=== PATIENT | male | born 1945 | race Caucasian/White ===

== ENCOUNTER 2023-05-29 17:03 | Observation (INO) | payer OTHER ==
[2023-05-29 17:21] LABS: BASOPHILS # (AUTO) 0.1 10^3/uL (0.0-0.1); BASOPHILS % (AUTO) 0.6 %; EOSINOPHILS # (AUTO) 0.2 10^3/uL (0.0-0.7); EOSINOPHILS % (AUTO) 1.7 %; HCT - HEMATOCRIT 38.2 % (42.0-52.0); HGB - HEMOGLOBIN 12.8 g/dL (14.0-18.0); LYMPHOCYTES # (AUTO) 2.8 10^3/uL (1.5-3.5); LYMPHOCYTES % (AUTO) 31.8 %; MEAN CORPUSCULAR HGB CONC 33.5 g/dL (32.0-36.0); MEAN CORPUSCULAR VOLUME 92.5 fL (80.0-94.0); MEAN PLATELET VOLUME 9.7 fL (7.4-11.4); MONOCYTES % (AUTO) 11.5 %; NEUTROPHILS # (AUTO) 4.7 10^3/uL (1.5-6.6); NEUTROPHILS % (AUTO) 53.6 %; PLT - PLATELET COUNT 267 10^3/uL (130-450); RED BLOOD COUNT 4.13 10^6/uL (4.70-6.10); RED CELL DISTRIBUTION WIDTH 12.7 % (12.0-15.0); WHITE BLOOD COUNT 8.8 x10^3/uL (4.8-10.8)
--- NOTE | 2023-05-29 17:23 | ED Physician Documentation ---
PD HPI FOCAL NEURO - Stated complaint Stated Complaint: EXPRESSIVE APHASIA,TALLEY - Chief complaint Chief Complaint: Neuro - History obtained from History obtained from: Patient, Family - History of Present Illness Timing - onset: How many minutes ago (45) Timing - duration: Minutes (45) Timing - details: Abrupt onset Severity of deficit: Mild Associated symptoms: No: Nausea / vomiting, Seizure, Syncope, Fall, Head injury, Chest pain, Neck pain, Back pain Contributing factors: negative: Anticoagulated Baseline status: positive: A&OX3, ambulatory, indep - Additional information Additional information: Patient is a 78-year-old male who presents to the emergency department with difficulty with word finding that started at about 1630 today, approximately 45 minutes prior to arrival. They had just finished dinner. He states he had a slight left-sided headache at that time but this is since resolved. No fevers. No chills. No trauma. No falls. Does not take any blood thinners. No numbness or tingling. No weakness. No vision changes. No difficulty with ambulation. Has not had similar symptoms previously. He is a diabetic. Review of Systems Constitutional: denies: Fever, Chills Nose: denies: Rhinorrhea / runny nose, Congestion Respiratory: denies: Dyspnea, Cough GI: denies: Abdominal Pain, Nausea, Vomiting, Diarrhea Skin: denies: Rash Musculoskeletal: denies: Neck pain, Back pain Neurologic: denies: Focal weakness, Numbness, Seizure, Confused, Head injury, LOC PD PAST MEDICAL HISTORY - Past Medical History Past Medical History: Yes Cardiovascular: Hypertension Endocrine/Autoimmune: Type 2 diabetes - Present Medications Home Medications: Ambulatory Orders Medication Instructions Recorded Confirmed Aspirin EC [Ecotrin] 81 mg PO DAILY 05/29/23 05/29/23 Losartan Potassium 100 mg PO DAILY 05/29/23 05/29/23 Metformin HCl 1,000 mg PO DAILY 05/29/23 05/29/23 Omeprazole Magnesium 20 mg PO DAILY 05/29/23 05/29/23 Semaglutide [Ozempic] 1 mg SUBQ PRN PRN 05/29/23 05/29/23 Simvastatin [Zocor] 40 mg PO DAILY 05/29/23 05/29/23 Tamsulosin HCl [Flomax] 0.4 mg PO DAILY 05/29/23 05/29/23 - Allergies Allergies/Adverse Reactions: Allergies Allergy/AdvReac Type Severity Reaction Status Date / Time No Known Drug Allergies Allergy Verified 05/29/23 17:18 - Living Situation Living Situation: reports: With family Living Arrangement: reports: At home - Social History Does the pt smoke?: No Smoking Status: Never smoker Does the pt drink ETOH?: Yes - Family History Family history: reports: Non contributory PD ED PE NORMAL - Vitals Vital signs reviewed: Yes - General General: Alert and oriented X 3, No acute distress - HEENT HEENT: PERRL, Moist mucous membranes - Neck Neck: Supple, no meningeal sign - Cardiac Cardiac: RRR, Strong equal pulses - Respiratory Respiratory: No respiratory distress, Clear bilaterally - Abdomen Abdomen: Soft, Non tender, Non distended - Derm Derm: Warm and dry - Extremities Extremities: No edema, No calf tenderness / cord - Neuro Neuro: Alert and oriented X 3, 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 NIHSS - Time Time: 17:15 - Level of Consciousness Level of consciousness: (0) Alert, Keenly responsive LOC Questions: (0) Answers both Q's correct LOC Commands: (0) Performs both correctly - Gaze Best Gaze: (0) Normal - Visual Visual: (0) No loss - Facial Palsy Facial Palsy: (0) Normal, symmetrical movement - Motor Arms (both separate) Motor Arm (right): (0) No drift Motor Arm (left): (0) No drift - Motor Legs (both separate) Motor Leg (right): (0) No drift Motor Leg (left): (0) No drift - Limb Ataxia Limb Ataxia: (0) Absent - Sensory Sensory: (0) Normal - Best Language Best Language: (1) [id number] - Dysarthria Dysarthria: (0) Normal - Extinction and Inattention (formally neg Extinction and inattention: (0) No abnormality - Total Score/Results Total Score/Result: 1 Results - Vitals Vitals: Vital Signs - 24 hr 05/29/23 05/29/23 05/29/23 17:13 18:03 18:30 Temperature 36.8 C Heart Rate 77 77 77 Respiratory 20 18 18 Rate Blood Pressure 150/86 H 151/67 H 138/100 H O2 Saturation 98 100 100 If not protocol : Oxygen Flow, liters/minute 05/29/23 05/29/23 19:41 21:01 Temperature 37 C 36.5 C Heart Rate 85 96 Respiratory 17 17 Rate Blood Pressure 176/74 H 135/76 H O2 Saturation 99 100 If not protocol 2 : Oxygen Flow, liters/minute Oxygen O2 Source Room air - EKG (time done) 1717 EKG releavant findings:: EKG personally interpreted by author of this note. Relevant findings are: Rate: Rate (enter#) (69) Rhythm: NSR [place]: Anterior hemiblock (Left anterior fascicular block) Intervals: RBBB - Labs Labs: Laboratory Tests 05/29/23 05/29/23 05/29/23 17:17 17:17 17:17 WBC 8.8 RBC 4.13 L Hgb 12.8 L Hct 38.2 L MCV 92.5 MCH 31.0 MCHC 33.5 RDW 12.7 Plt Count 267 MPV 9.7 Neut # (Auto) 4.7 Lymph # (Auto) 2.8 Crane # (Auto) 1.0 Eos # (Auto) 0.2 Baso # (Auto) 0.1 Absolute Nucleated RBC 0.00 Nucleated RBC % 0.0 PT 11.5 INR 1.1 APTT 27.7 Sodium 130 L Potassium 4.5 Chloride 96 L Carbon Dioxide 26 Anion Gap 8.0 BUN 16 Creatinine 1.1 Estimated GFR (MDRD) 65 L Glucose 146 H POC Whole Bld Glucose Calcium 10.0 Magnesium Total Bilirubin 0.5 AST 30 ALT 39 Alkaline Phosphatase 166 H Total Protein 7.8 Albumin 4.5 Globulin 3.3 Albumin/Globulin Ratio 1.4 Lipase 216 H TSH Urine Color Urine Clarity Urine pH Ur Specific [place] Urine Protein Urine Glucose (UA) Urine Ketones Urine Occult Blood Urine Nitrite Urine Bilirubin Urine Urobilinogen Ur Leukocyte Esterase Urine RBC Urine WBC Ur Squamous Epith Cells Urine Bacteria Ur Microscopic Review Urine Culture Comments Salicylates Urine Opiates Screen Ur Oxycodone Screen Urine Methadone Screen Ur Propoxyphene Screen Acetaminophen Ur Barbiturates Screen Ur Tricyclics Screen Ur Phencyclidine Scrn Ur Amphetamine Screen U Methamphetamines Scrn U Benzodiazepines Scrn Urine Cocaine Screen U Cannabinoids Screen Ethyl Alcohol 05/29/23 05/29/23 05/29/23 17:17 17:17 17:24 WBC RBC Hgb Hct MCV MCH MCHC RDW Plt Count MPV Neut # (Auto) Lymph # (Auto) [place]ane # (Auto) Eos # (Auto) Baso # (Auto) Absolute Nucleated RBC Nucleated RBC % PT INR APTT Sodium Potassium Chloride Carbon Dioxide Anion Gap BUN Creatinine Estimated GFR (MDRD) Glucose POC Whole Bld Glucose 148 H Calcium Magnesium 1.7 Total Bilirubin AST ALT Alkaline Phosphatase Total Protein Albumin Globulin Albumin/Globulin Ratio Lipase TSH 2.41 Urine Color Urine Clarity Urine pH Ur Specific [place] Urine Protein Urine Glucose (UA) Urine Ketones Urine Occult Blood Urine Nitrite Urine Bilirubin Urine Urobilinogen Ur Leukocyte Esterase Urine RBC Urine WBC Ur Squamous Epith Cells Urine Bacteria Ur Microscopic Review Urine Culture Comments Salicylates < 1.5 Urine Opiates Screen Ur Oxycodone Screen Urine Methadone Screen Ur Propoxyphene Screen Acetaminophen 0.1 Ur Barbiturates Screen Ur Tricyclics Screen Ur Phencyclidine Scrn Ur Amphetamine Screen U Methamphetamines Scrn U Benzodiazepines Scrn Urine Cocaine Screen U Cannabinoids Screen Ethyl Alcohol 12.7 05/29/23 19:55 WBC RBC Hgb Hct MCV MCH MCHC RDW Plt Count MPV Neut # (Auto) Lymph # (Auto) [place] # (Auto) Eos # (Auto) Baso # (Auto) Absolute Nucleated RBC Nucleated RBC % PT INR APTT Sodium Potassium Chloride Carbon Dioxide Anion Gap BUN Creatinine Estimated GFR (MDRD) Glucose POC Whole Bld Glucose Calcium Magnesium Total Bilirubin AST ALT Alkaline Phosphatase Total Protein Albumin Globulin Albumin/Globulin Ratio Lipase TSH Urine Color YELLOW Urine Clarity CLEAR Urine pH 7.0 Ur Specific [place] 1.010 Urine Protein 30 H Urine Glucose (UA) NEGATIVE Urine Ketones TRACE Urine Occult Blood NEGATIVE Urine Nitrite NEGATIVE Urine Bilirubin NEGATIVE Urine Urobilinogen 0.2 (NORMAL) Ur Leukocyte Esterase NEGATIVE Urine RBC 0-5 Urine WBC 0-3 Ur Squamous Epith Cells RARE Squamous Urine Bacteria None Seen Ur Microscopic Review INDICATED Urine Culture Comments NOT INDICATED Salicylates Urine Opiates Screen NEGATIVE Ur Oxycodone Screen NEGATIVE Urine Methadone Screen NEGATIVE Ur Propoxyphene Screen NEGATIVE Acetaminophen Ur Barbiturates Screen NEGATIVE Ur Tricyclics Screen NEGATIVE Ur Phencyclidine Scrn NEGATIVE Ur Amphetamine Screen NEGATIVE U Methamphetamines Scrn NEGATIVE U Benzodiazepines Scrn NEGATIVE Urine Cocaine Screen NEGATIVE U Cannabinoids Screen NEGATIVE Ethyl Alcohol - Rads (name of study) CT head Relevant Findings:: Final report received, See rad report CT angiogram head and neck Relevant Findings:: Final report received, See rad report Brain MRI Relevant Findings:: Final report received, See rad report PD Medical Decision Making - ED course Complexity details: reviewed results, re-evaluated patient, considered differential (No evidence of sepsis, encephalitis, meningitis. Possible complex migraine but the symptoms did not resolve with resolution of the headache. No evidence of stroke or TIA.), d/w patient, d/w salon sales consultant ED course: Patient had fairly mild expressive aphasia when he arrived in the emergency department. His symptoms are waxing and waning in the emergency department sometimes he will be able to speak several words, other times it appears that he recognizes objects but cannot name them. I did discuss the case with teleporsha sarkar, because of the mild waxing and waning symptoms, we will hold off on tPA at this time. CT angiogram head and neck do not show any significant abnormalities. CT head does not show any acute abnormalities. Brain MRI does not show any acute abnormalities. Patient became more restless and altered in the emergency department. No fevers. No cough. No congestion. No recent illnesses normal white count. Normal tox screen. His alcohol level is not significantly elevated. Unclear etiology of his altered mental status. Discussed the case with the nighttime hospitalist and we will admit the patient for further care and observation. This document was made in part using voice recognition software. While efforts are made to proofread this document, sound alike and grammatical errors may oc cur. Patient did have a headache originally, this resolved in the emergency department but his other symptoms persisted. Departure - Departure Disposition: ED Place in Observation Clinical Impression: Expressive aphasia Altered mental status Qualifiers: Altered mental status type: unspecified Qualified Code(s): R41.82 - Altered mental status, unspecified Condition: Stable Forms: PCP List
[2023-05-29 17:34] LABS: PARTIAL THROMBOPLASTIN TIME 27.7 secs (24.9-33.3)
[2023-05-29 17:37] LABS: ALBUMIN 4.5 g/dL (3.2-5.5)
[2023-05-29 17:38] LABS: INR 1.1 (0.8-1.2); PT - PROTHROMBIN TIME 11.5 secs (9.9-12.6)
[2023-05-29 17:44] LABS: POTASSIUM 4.5 mmol/L (3.5-4.5)
[2023-05-29 17:45] LABS: ALBUMIN/GLOBULIN RATIO 1.4 (1.0-2.2); BILIRUBIN,TOTAL 0.5 mg/dL (0.2-1.0); CREATININE 1.1 mg/dL (0.6-1.3); TOTAL PROTEIN 7.8 g/dL (6.4-8.9)
[2023-05-29] MEDS ORDERED: iohexoL-300 100 ML VIAL IVP ONE (18:03)
--- NOTE | 2023-05-29 18:07 | CT Report ---
PROCEDURE: Head W/O Stroke Protocol INDICATIONS: espressive aphasia TECHNIQUE: Noncontrast 4.5 mm thick angled axial sections acquired from the foramen magnum to the vertex, with c oronal reformats. For radiation dose reduction, the following was used: automated exposure control, adjustment of mA and/or kV according to patient size. COMPARISON: None. FINDINGS: Image quality: Excellent. CSF spaces: Basal cisterns are patent. No extra-axial fluid collections. Ventricles are symmetric in size and shape. Brain: No midline shift. No intracranial masses or hemorrhage. Hypodensities in the subcortical and periventricular white matter are most commonly seen in setting of chronic microvascular ischemic kajal nges. Age-related cerebral and cerebellar volume loss is seen. Intracranial vascular calcifications a re noted in the internal carotid arteries. Skull and face: Calvarium and visualized facial bones are intact, without suspicious lesions. Sinuses: Visualized sinuses and mastoids are clear. IMPRESSION: 1.No acute intracranial abnormality. 2.Chronic microvascular ischemic changes and mild generalized parenchymal volume loss. Findings were discussed with ordering provider, Dr. Leroy, on 05/29/2023 at 6:04 PM. This study fulfills neurological imaging criteria for inclusion or exclusion of acute stroke therapie s based on available published neurological imaging guidelines. Reviewed by: Nito Malin MD on 05/29/2023 6:06 PM PST Approved by: Nito Malin MD on 05/29/2023 6:06 PM PST Station ID: [id number]
[2023-05-29] MEDS ORDERED: ASPIRIN CHEW 81 MG TABLET PO STA (18:14)
--- NOTE | 2023-05-29 18:15 | CT Report ---
PROCEDURE: CT Angio Head/Neck INDICATIONS: expressive aphasia TECHNIQUE: After the administration of intravenous contrast, 1 mm thick sections acquired from the aortic arch t hrough the [place]. 3-dimensional hmvtdhv-wamptrhux-czmhqsdsie (MIP) and/or volume renderin g reformats were acquired of the central intracranial vasculature and neck separately. For radiation dose reduction, the following was used: automated exposure control, adjustment of mA and/or kV acco rding to patient size. CONTRAST: Omnipaque 300 COMPARISON: CT head 05/29/2023 FINDINGS: Image quality: Diagnostic. HEAD CT: CSF Spaces: Basal cisterns are patent. No extra-axial fluid collections. Ventricles are normal in size and shape. Brain: The brain is within normal limits for age and scanning technique. Skull and face: Calvarium and visualized facial bones appear intact, without suspicious lesions. Sinuses: Visualized sinuses and mastoids are clear. HEAD CT ANGIOGRAPHY: Anterior circulation: Intracranial internal carotid arteries demonstrate mild atherosclerotic calcif ications without hemodynamically significant stenosis.. The flow within the paired anterior cerebral arteries is normal and symmetric. The flow within the middle cerebral arteries is normal and symmet demetrius. The anterior communicating artery is seen. No aneurysms are seen. Posterior circulation: Mild atherosclerotic calcifications within the intracranial portion of the ri ght vertebral artery without hemodynamically significant stenosis. Left intracranial vertebral artery is patent. The vertebral arteries to form a normal appearing basilar artery. Flow within the brush polisher ior cerebral arteries is normal and symmetric. No aneurysms are seen. NECK CT ANGIOGRAPHY: Carotid system: The great vessels demonstrate a conventional anatomy as they arise from the aortic a rch. The origins of the common carotid arteries appear patent. The common carotid arteries demonstr ate normal caliber and courses. Calcified atherosclerotic plaque at the right carotid bifurcation res ults in less than 50% stenosis of the proximal right internal carotid artery. Atherosclerotic calcifi cations also seen at the left carotid artery bifurcation and proximal left internal carotid artery re sulting in a short segment of up to 60% stenosis. Posterior circulation: Atherosclerotic calcifications are seen at the origin of the right vertebral artery resulting in less than 50% stenosis. The left vertebral artery origin is patent. The more supe rior extracranial portions of the vertebral arteries are patent. Soft tissues: Visualized neck soft tissues demonstrate no suspicious abnormalities. Bones: No suspicious bony lesions. Mild degenerative changes in the cervical spine. IMPRESSION: 1.Short segment 60% stenosis of the proximal left internal carotid artery distal to the carotid bifur cation. Less than 50% stenosis of the right internal carotid artery. 2.Focal less than 50% stenosis of the right vertebral artery at its origin. 3.No large vessel occlusion or hemodynamically significant stenosis within the major intracranial art eries. The estimate of stenosis included in the report of the imaging study was calculated using the NASCET method Reviewed by: Nito Malin MD on 05/29/2023 6:13 PM PST Approved by: Nito Malin MD on 05/29/2023 6:13 PM PST Station ID: [id number]
[2023-05-29] MEDS ORDERED: KETOROLAC 30 MG/ML VIAL IVP STA (18:16)
[2023-05-29] MEDS ORDERED: DROPERIDOL 5 MG/2 ML VIAL IVP STA (18:16)
--- NOTE | 2023-05-29 19:33 | MRI Report ---
PROCEDURE: BRAIN WO INDICATIONS: expressive aphasia TECHNIQUE: Noncontrast axial T1 spin echo, axial T2 fast spin echo, sagittal and axial FLAIR, coronal T2 fast sp in echo, axial gradient echo, axial diffusion and ADC through the brain. COMPARISON: Correlation is made with the CT examinations performed earlier in the day. FINDINGS: Image quality: Motion artifact is noted. CSF Spaces: Basal cisterns are patent. No extra-axial fluid collections. Ventricles are normal in size and shape. Brain: No intracranial masses or hemorrhage. [place]/white matter interface is normal. Brainstem appe ars normal. Diffusion-weighted images demonstrate no acute ischemic insult. No chronic ischemic ins ults. Normal intravascular flow voids are present. Age-appropriate brain parenchymal volume loss an d chronic small vessel ischemic change can be seen. Skull and face: Calvarium has normal marrow signal. Orbits appear normal. Incidental note is made of bilateral lens replacements. Sinuses: Sinuses and mastoids are clear. IMPRESSION: No findings of acute or subacute infarction are seen. No significant intracranial abnormality is seen. Age-appropriate brain parenchymal volume loss and chronic small vessel ischemic change can be seen. Reviewed by: Antelmo Mcallister MD on 05/29/2023 6:32 PM [place] Approved by: Antelmo Mcallister MD on 05/29/2023 6:32 PM [facility] Station ID: [id number]
[2023-05-29 20:00] LABS: MUDS CUTOFF CONCENTRATIONS CUTOFF CONC BELOW:
[2023-05-29 20:04] LABS: BILIRUBIN,URINE NEGATIVE (NEGATIVE); GLUCOSE, URINE (UA) NEGATIVE (NEGATIVE); KETONES,URINE (UA) TRACE mg/dL (NEGATIVE); LEUKOCYTE ESTERASE, URINE NEGATIVE (NEGATIVE); NITRITE,URINE NEGATIVE (NEGATIVE); OCCULT BLOOD,URINE NEGATIVE (NEGATIVE); PROTEIN,URINE 30 mg/dL (NEGATIVE); UROBILINOGEN,URINE 0.2 (NORMAL) E.U./dL (NORMAL)
[2023-05-29 20:15] LABS: CLARITY,URINE CLEAR (CLEAR)
[2023-05-29 20:16] LABS: AMPHETAMINE SCREEN,URINE NEGATIVE (NEGATIVE); BACTERIA,URINE None Seen /HPF (None Seen); BARBITURATE SCREEN,UR NEGATIVE (NEGATIVE); BENZODIAZEPINES SCREEN, URINE NEGATIVE (NEGATIVE); COCAINE SCREEN URINE NEGATIVE (NEGATIVE); METHADONE SCREEN, URINE NEGATIVE (NEGATIVE); METHAMPHETAMINES SCREEN, URINE NEGATIVE (NEGATIVE); OPIATE SCREEN, URINE NEGATIVE (NEGATIVE); OXYCODONE SCREEN, URINE NEGATIVE (NEGATIVE); PROPOXYPHENE SCREEN, URINE NEGATIVE (NEGATIVE); RBC,URINE 0-5 /HPF (0-5); SQUAMOUS EPITHELIAL CELL,UR RARE Squamous (<= Few); THC CANNABINOID SCREEN, URINE NEGATIVE (NEGATIVE); TRICYCLIC ANTIDEPRESSANT,URINE NEGATIVE (NEGATIVE); WBC,URINE 0-3 /HPF (0-3)
[2023-05-29] MEDS ORDERED: OLANZapine 10 MG VIAL IM STA (21:06)
--- NOTE | 2023-05-29 21:44 | HISTORY & PHYSICAL EXAMINATION ---
Chief Complaint - Chief Complaint Chief Complaint: word finding difficulty History of Present Illness - Admitted From Admitted From:: home - History Obtained From History obtained from: patient and his son Exam Limitations: telemedicine - History of Present Illness HPI Comment/Other: Mr Hart is a 78 year old male with history of DM II, HTN. Presents to the ER with c/o word finding difficulty that started at 1630 today after dinner associated with a left sided headache. He was having a hard time speaking, he said "maybe a stroke", he has the thoughts but can't get his words out. This is unchanged since that time, still can't form full sentences. The headache has resolved. Prior to my evaluation patient was agitated, required IM Zyprexa in ER. Currently he is calm, cooperative, his son is with him at bedside to assist with history. Patient is able to tell me his full name, cannot remember where he is currently, or month/year - he does attempt to answer but cannot say the words. Denies numbness/weakness in any extremities. No facial droop or slurred speech. Denies fevers, chills, abd pain, n/v, hematuria/dysuria, cp, sob, cough. Denies vision/hearing changes, uses glasses and hearing aids at baseline. Lives with his in [place]. Patient reports he had a similar episode with speech impairment approx 2 years ago, but it was self limited and resolved after he received ASA. He has been taking baby ASA since that incident. He does not think it was due to a stroke at that time. ER provider discussed with telestroke/teleneurology, TPA not recommended due to unremarkable imaging and waxing/waning symptoms in ER. History - Past Medical History Cardiovascular: reports: Hypertension Endocrine/Autoimmune: reports: Type 2 diabetes MRSA Hx?: No - Family & Social History Living arrangement: At home Living Situation: With family Meds/Allgy - Home Medications Home Medications: Ambulatory Orders Medication Instructions Recorded Confirmed Aspirin EC [Ecotrin] 81 mg PO DAILY 05/29/23 05/29/23 Losartan Potassium 100 mg PO DAILY 05/29/23 05/29/23 Metformin HCl 1,000 mg PO DAILY 05/29/23 05/29/23 Omeprazole Magnesium 20 mg PO DAILY 05/29/23 05/29/23 Semaglutide [Ozempic] 1 mg SUBQ PRN PRN 05/29/23 05/29/23 Simvastatin [Zocor] 40 mg PO DAILY 05/29/23 05/29/23 Tamsulosin HCl [Flomax] 0.4 mg PO DAILY 05/29/23 05/29/23 - Allergies Allergies/Adverse Reactions: Allergies Allergy/AdvReac Type Severity Reaction Status Date / Time No Known Drug Allergies Allergy Verified 05/29/23 17:18 Review of Systems - Constitutional Constitutional: denies: Fever, Chills, Weakness, Poor appetite, Diaphoresis - Eyes Eyes: denies: Blurred vision, Vision loss, Dipolpia - Ears, Nose & Throat Ears, Nose & Throat: reports: Hearing aids. denies: Hearing loss - Cardiovascular Cariovascular: denies: Chest pain - Respiratory Respiratory: denies: Cough, Sputum production - Gastrointestinal Gastrointestinal: denies: Abdominal pain, Constipation, Diarrhea - Genitourinary Genitourinary: denies: Dysuria, Frequency, Urgency - Musculoskeletal Musculoskeletal: denies: Muscle pain, Muscle weakness - Integumentary Integumentary: denies: Rash, Pruritis - Neurological Neurological: reports: Headache (resolved). denies: General weakness, Focal weakness, Numbness, Slurred speech Prior Level of Functionality: ambulates independently Exam - Vital Signs Reviewed Vital Signs: Yes Vital Signs: Vital Signs x48h Temp Pulse Resp BP Pulse Ox O2 Flow Rate 05/29/23 21:01 36.5 C 96 17 135/76 H 100 05/29/23 19:41 37 C 85 17 176/74 H 99 2 05/29/23 18:30 77 18 138/100 H 100 05/29/23 18:03 77 18 151/67 H 100 05/29/23 17:13 36.8 C 77 20 150/86 H 98 - Physical Exam General Appearance: positive: No acute distress, Alert Eyes Bilateral: positive: Normal inspection Neck: positive: Nml inspection Respiratory: positive: No respiratory distress Cardiovascular: positive: Regular rate & rhythm Abdomen: positive: No distention Skin: positive: Color nml, No rash Extremities: positive: Full ROM Neurologic/Psychiatric: positive: Disoriented to place, Disoriented to time, Slurred/abnml speech. negative: Disoriented to person, Weakness, Facial droop Comments/Other: limited exam - telemedicine visit Conclusion/Plan - Lab Results Lab results reviewed: Yes Fish Bones: 05/29/23 17:17 05/29/23 17:17 - Diagnostic Imaging Results Diagnostic Imaging Results: positive: Final report reviewed - Other Other Results/Comments: Assessment/Plan: Acute metabolic encephalopathy Word finding difficulty -Etiology unclear -Pt presents with word finding difficulty/dysarthria -CT head, CTA head/neck, MRI brain reviewed, no acute CVA -ER provider reviewed with telestroke, no indication for TPA at this time -F/u echocardiogram -UA neg, no other clear signs of infection, afebrile, no elevated leukocytosis, no cough/shortness of breath -UDS neg, social/occasional alcohol use, had 1 beer with dinner tonight -Pt reports prior similar episode 2 years ago - ?TIA -Continue ASA, statin -Neurochecks -monitor technician DM II -SSI Full code DVT ppx Heparin sc Admit for observation.
[2023-05-29 21:48] LABS: ACETAMINOPHEN 0.1 ug/mL
[2023-05-29 21:50] LABS: THYROID STIMULATING HORMONE 2.41 uIU/mL (0.34-5.60)
[2023-05-29 21:54] LABS: MAGNESIUM 1.7 mg/dL (1.7-2.3); SALICYLATE < 1.5 mg/dL
[2023-05-29] MEDS ORDERED: ONDANSETRON 4 MG/2 ML VIAL IVP PRN (21:59)
[2023-05-29] MEDS ORDERED: ACETAMINOPHEN 325 MG TABLET PO PRN (21:59)
[2023-05-29] MEDS ORDERED: SODIUM CHLORIDE FLUSH 0.9% 10 ML SYRINGE IVP PRN (21:59)
[2023-05-29] MEDS: SODIUM CHLORIDE 0.9% 1,000 ML IV SCH (22:06)
[2023-05-30] MEDS: SODIUM CHLORIDE 0.9% 1,000 ML IV SCH ×2 (00:04→10:12)
[2023-05-30] MEDS: SODIUM CHLORIDE FLUSH 0.9% 10 ML SYRINGE IVP SCH ×2 (00:04→09:16)
[2023-05-30 07:04] LABS: CALCIUM 8.9 mg/dL (8.5-10.3); CREATININE 1.2 mg/dL (0.6-1.3); POTASSIUM 4.4 mmol/L (3.5-4.5)
[2023-05-30 07:39] VITALS: BP 134/70; O2SAT 95
[2023-05-30] MEDS: INSULIN LISPRO 300 UNIT/3 ML PEN SUBQ SCH ×2 (07:45→12:11)
--- NOTE | 2023-05-30 08:28 | PHARMACY PROGRESS NOTE ---
- Best Possible Medication History Admit Date and Time: 05/29/23 4514 Processed by: Nursing As the person ultimately responsible for medication therapy, providers are able to order a medication from an existing home medication list in [facility] via the "Reconcile Routine" prior to Confirmation of that medication by marketing support coordinator. Such practice is discouraged except when the physician, in their clinical judgment, deems that a medical need exists for a medication without regard to previous use.
[2023-05-30] MEDS ORDERED: TAMSULOSIN 0.4 MG CAPSULE PO SCH (09:00)
[2023-05-30] MEDS ORDERED: HEPARIN 5,000 UNIT/ML VIAL SUBQ SCH (09:00)
[2023-05-30] MEDS ORDERED: ASPIRIN EC 81 MG TABLET PO SCH (09:00)
[2023-05-30] MEDS ORDERED: polyethylene glycoL 3350 17 GM PACKET PO SCH (09:00)
[2023-05-30] MEDS ORDERED: CLOPIDOGREL 75 MG TABLET PO SCH (09:00)
[2023-05-30] MEDS ORDERED: PANTOPRAZOLE 40 MG TABLET ONE (09:34)
[2023-05-30] MEDS ORDERED: PANTOPRAZOLE 40 MG TABLET PO SCH (11:00)
--- NOTE | 2023-05-30 11:05 | Discharge Plan ---
Discharge Plan Problem Reviewed?: Yes Disposition: Home, Self Care Condition: Stable Prescriptions: Clopidogrel [Plavix] 75 mg PO DAILY 21 Days #21 tab Diet: Diabetic Activity Restrictions: No Restrictions Weight Bearing: Full Weight Plan of Treatment: Continue aspirin and atorvastatin. Take Plavix 75 mg starting tomorrow for 21 days. We will order your echocardiogram as an outpatient. No Smoking: If you smoke, Please STOP! Call for help.
--- NOTE | 2023-05-30 11:20 | DISCHARGE SUMMARY ---
Discharge Summary Discharge Date: 05/30/23 Discharging Provider: Janice Hernandez Primary Care Provider: Out of state. Condition at Discharge: Stable Discharge Disposition: 01 Home, Self Care - DIAGNOSES Discharge Diagnoses with Status of Each Condition: TIA - word finding difficulties resolved. Will need an outpatient TTE. Remains on ASA, plavix, Atorvastatin. - HPI History of Present Illness: Mr Hart is a 78 year old male with history of DM II, HTN. Presents to the ER with c/o word finding difficulty that started at 1630 today after dinner associated with a left sided headache. He was having a hard time speaking, he said "maybe a stroke", he has the thoughts but can't get his words out. This is unchanged since that time, still can't form full sentences. The headache has resolved. Prior to my evaluation patient was agitated, required IM Zyprexa in ER. Currently he is calm, cooperative, his son is with him at bedside to assist with history. Patient is able to tell me his full name, cannot remember where he is currently, or month/year - he does attempt to answer but cannot say the words. Denies numbness/weakness in any extremities. No facial droop or slurred speech. Denies fevers, chills, abd pain, n/v, hematuria/dysuria, cp, sob, cough. Denies vision/hearing changes, uses glasses and hearing aids at baseline. Lives with his in [place]. Patient reports he had a similar episode with speech impairment approx 2 years ago, but it was self limited and resolved after he received ASA. He has been taking baby ASA since that incident. He does not think it was due to a stroke at that time. ER provider discussed with telestroke/teleneurology, TPA not recommended due to unremarkable imaging and waxing/waning symptoms in ER. - HOSPITAL COURSE Hospital Course: Patient is a 78-year-old male who presented to the ED due to sudden onset of word finding difficulties that began at 1630 with an associated headache. Upon presentation to the ED stat CT head with CTA head and neck was performed which did not show any evidence of bleeding or large vessel occlusion. Case was discussed with telemetry neurology and did not recommend tPA as at this point his symptoms had began to improve. Patient was admitted to the floor and started on aspirin 81 mg and high intensity statin. An MRI was performed which did not show any evidence of CVA. By the morning his symptoms had completely resolved. Patient displayed no focal neurologic deficits. A TTE remained as part of his work-up but would not be available until Thursday. Patient preferred to go home given his symptoms had improved and return for his TTE. He was started on Plavix 75 mg given his ABCD 2 score of 5 on discharge. I did instruct him to continue this for 21 days. We will arrange for outpatient TTE with bubble study to rule out intracardiac thrombus and PFO. - ALLERGIES Allergies/Adverse Reactions: Allergies Allergy/AdvReac Type Severity Reaction Status Date / Time No Known Drug Allergies Allergy Verified 05/29/23 17:18 - MEDICATIONS Home Medications: Ambulatory Orders Medication Instructions Recorded Confirmed Aspirin EC [Ecotrin] 81 mg PO DAILY 05/29/23 05/29/23 Losartan Potassium 100 mg PO DAILY 05/29/23 05/29/23 Metformin HCl 1,000 mg PO DAILY 05/29/23 05/29/23 Omeprazole Magnesium 20 mg PO DAILY 05/29/23 05/29/23 Semaglutide [Ozempic] 1 mg SUBQ Q7D 05/29/23 05/30/23 Simvastatin [Zocor] 40 mg PO DAILY 05/29/23 05/29/23 Tamsulosin HCl [Flomax] 0.4 mg PO DAILY 05/29/23 05/29/23 Clopidogrel [Plavix] 75 mg PO DAILY 21 Days #21 tab 05/30/23 - PHYSICAL EXAM AT DISCHARGE General Appearance: positive: No acute distress, Alert Eyes Bilateral: positive: Normal inspection, PERRL, EOMI Respiratory: positive: Chest non-tender, No respiratory distress, Breath sounds nml Cardiovascular: positive: Regular rate & rhythm, No murmur, No gallop Abdomen: positive: Non-tender, No organomegaly, Nml bowel sounds Neurologic/Psychiatric: positive: Oriented x3, CN's nml (2-12), Motor nml, Sensation nml, Mood/affect nml - LABS Result Diagrams: 05/29/23 17:17 05/30/23 05:23 - DIAGNOSTIC IMAGING Diagnostic Imaging Results: Final report reviewed - SEPSIS Current Stage of Sepsis: Ruled out - FOLLOW UP Follow Up: Patient is from [place] and has an [id number] PCP. He was instructed to follow-up with his PCP upon returning to [place]. - TIME SPENT Time Spent in Discharge (Minutes): 35
[2023-05-30] MEDS ORDERED: ATORVASTATIN 10 MG TABLET PO SCH (21:00)
== END 2023-05-30 14:05 | disposition home or self-care (01) ==
LOC: ED 17:03 → MS2 21:59
PROVIDERS: ADMIT Student in an Organized Health Care Education/Training Program; ATTEND Family Medicine
DX: G45.9 Transient cerebral ischemic attack, unspecified (principal); R47.01 Aphasia; R51.9 Headache, unspecified; R45.1 Restlessness and agitation; I10 Essential (primary) hypertension; E11.9 Type 2 diabetes mellitus without complications; I45.2 Bifascicular block; Z79.84 Long term (current) use of oral hypoglycemic drugs; Z79.82 Long term (current) use of aspirin; Z79.4 Long term (current) use of insulin
CPT/HCPCS: 36415; 51701; 70450; 70496; 70498; 70551; 80048; 80053; 80306; 80307; 80320; 80329; 81001; 82607; 82746; 83690; 83735; 84443; 85025; 85610; 85730; 93005; 96361; 96372; 96374; 96375; 99285; A9270; G0378; Q9967; 81003; 87086